=== PATIENT | female | born 1990 | race Caucasian/White ===

== ENCOUNTER 2018-03-06 04:14 | Outpatient (CLI) | payer MEDICAID ==
[2018-03-06 04:53] LABS: APPEARANCE,URINE SLIGHTLY-CLOUDY; BILIRUBIN,URINE NEGATIVE (NEGATIVE); COLOR,URINE YELLOW; GLUCOSE, URINE NEGATIVE (NEGATIVE); KETONES,URINE NEGATIVE (NEGATIVE); LEUKOCYTE ESTERASE,URINE MODERATE (NEGATIVE); NITRITE,URINE NEGATIVE (NEGATIVE); PROTEIN,URINE NEGATIVE (NEGATIVE); URINE SPECIFIC GRAVITY 1.019; UROBILINOGEN,URINE NEGATIVE mg/dL (<2.0)
[2018-03-06 05:10] LABS: URINE AMPHETAMINES SCREEN NEGATIVE; URINE BARBITURATES SCREEN NEGATIVE; URINE BENZODIAZEPINES SCREEN NEGATIVE; URINE COCAINE SCREEN NEGATIVE; URINE METHADONE SCREEN NEGATIVE; URINE PHENCYCLIDINE SCREEN NEGATIVE
[2018-03-06 05:16] LABS: URINE MARIJUANA (THC) SCREEN UNCONFIRMED POSITIVE
== END 2018-03-06 05:24 | disposition home or self-care (01) ==
LOC: LC 04:14
PROVIDERS: ATTEND Obstetrics & Gynecology Gynecology
PROC: 4A1HXCZ Monitoring of Products of Conception, Cardiac Rate, External Approach (ICD-10-PCS; principal; 2018-03-06)
DX: O47.1 False labor at or after 37 completed weeks of gestation (principal); Z3A.40 40 weeks gestation of pregnancy
CPT/HCPCS: 81005; 80307; 84112; 59025; G0480 ×2; 80349

== ENCOUNTER 2018-03-09 23:50 | Inpatient (IN) | payer MEDICAID ==
--- NOTE | 2018-03-09 23:53 | Non Stress Test Report ---
Non Stress Test Datetime Report Generated by CPN: 03/09/2018 23:52 DEMOGRAPHIC EGA NST: 40.3 INDICATION Indication for Study: Ordered by Provider Indication for Study (NST) Other: LC URINE RESULTS Urine Protein, NST: Negative Urine Ketones - NST: Negative Urine Glucose - NST: Negative Urine Blood - NST: Negative MONITORING Monitor Explained: Monitor Explained; Test Explained; Patient Verbalized Understanding Time on Monitor: 03/06/2018 04:38 Time off Monitor: 03/06/2018 05:19 NST Duration: 41 NST INTERVENTIONS NST Interventions: PO Hydration (Annotations: Data stored by CPN on behalf of user) Physician Notified NST: Drummond BABY A: [id number] BABY A Movement : Present Contraction Frequency : irregular FHR Baseline : 125 Accelerations : 15X15 Decelerations : None Variability : Moderate 6-25bpm NST Review: Meets Criteria for Reactive NST NST Review and Verified By : ESTELA Reddy NST Results: Reactive NST REPORT Report Trigger: Send Report
[2018-03-10 00:46] LABS: APPEARANCE,URINE SLIGHTLY-CLOUDY; BILIRUBIN,URINE NEGATIVE (NEGATIVE); COLOR,URINE YELLOW; GLUCOSE, URINE NEGATIVE (NEGATIVE); KETONES,URINE NEGATIVE (NEGATIVE); LEUKOCYTE ESTERASE,URINE SMALL (NEGATIVE); NITRITE,URINE NEGATIVE (NEGATIVE); PROTEIN,URINE NEGATIVE (NEGATIVE); UROBILINOGEN,URINE NEGATIVE mg/dL (<2.0)
[2018-03-10 01:02] LABS: URINE AMPHETAMINES SCREEN NEGATIVE; URINE BARBITURATES SCREEN NEGATIVE; URINE BENZODIAZEPINES SCREEN NEGATIVE; URINE COCAINE SCREEN NEGATIVE; URINE METHADONE SCREEN NEGATIVE; URINE PHENCYCLIDINE SCREEN NEGATIVE
[2018-03-10 01:05] LABS: URINE MARIJUANA (THC) SCREEN UNCONFIRMED POSITIVE
[2018-03-10] MEDS ORDERED: RINGERS SOLUTION,LACTATED 1,000 ML IV PRN (02:45)
[2018-03-10] MEDS ORDERED: RINGERS SOLUTION,LACTATED 1,000 ML IV ONE (02:45)
[2018-03-10 03:14] LABS: ABSOLUTE BASOPHILS # (AUTO) 0.1 10^3/uL (0.0-0.2); ABSOLUTE EOSINOPHILS # (AUTO) 0.1 10^3/uL (0.0-0.6); ABSOLUTE MONOCYTES (AUTO) 0.7 10^3/uL (0.1-1.4); BASOPHILS % (AUTO) 0.4 % (0-2); EOSINOPHILS % (AUTO) 0.3 % (0-6); HEMATOCRIT 34.8 % (36.0-47.0); HEMOGLOBIN 12.2 g/dL (12.0-15.5); LYMPHOCYTES % (AUTO) 5.9 % (13-45); MEAN CORPUSCULAR HEMOGLOBIN 31.6 pg (27.0-33.4); MEAN CORPUSCULAR HGB CONC 35.1 g/dL (32.0-36.0); MEAN CORPUSCULAR VOLUME 90 fl (80-97); MONOCYTES % (AUTO) 3.8 % (3-13); PLATELET COUNT 247 10^3/uL (150-450); RED BLOOD COUNT 3.87 10^6/uL (3.72-5.28); RED CELL DISTRIBUTION WIDTH 13.2 % (11.5-14.0); SEGMENTED NEUTROPHILS % (AUTO) 89.6 % (42-78); TOTAL CELLS COUNTED % (AUTO) 100 %; WHITE BLOOD COUNT 17.9 10^3/uL (4.0-10.5)
[2018-03-10] MEDS ORDERED: PHENYLEPHRINE HCL INJ/PF 10 MG/1 ML SDV ONE (07:56)
[2018-03-10] MEDS ORDERED: MISOPROSTOL 0.2 MG TABLET ONE (07:56)
[2018-03-10] MEDS ORDERED: OXYTOCIN 10 UNIT/ML VIAL ONE (07:56)
[2018-03-10] MEDS ORDERED: EPHEDRINE SULFATE INJ 50 MG/1 ML AMPULE ONE (07:57)
[2018-03-10] MEDS ORDERED: OXYTOCIN/NORMAL SALINE 20 UNIT/1,000 ML RTUINJ ONE (07:57)
[2018-03-10] MEDS ORDERED: LIDOCAINE 1% INJ-PF (10 MG/ML) 30 ML SDV ONE (07:57)
[2018-03-10] MEDS ORDERED: FENTANYL CITRATE INJ/PF 100 MCG/2 ML AMPUL ONE ×2 (07:57→08:25)
[2018-03-10] MEDS ORDERED: FENTANYL/BUPIVACAINE/NS/PF 200 MCG/100 ML RTUINJ EPI ONE (07:58)
[2018-03-10] MEDS ORDERED: BUPIVACAINE HCL 0.5 % INJ/PF 30 ML SDV ONE (07:59)
--- NOTE | 2018-03-10 08:21 | Admission Physical ---
Datetime Report Generated by CPN: 03/10/2018 08:21 CURRENT ADMISSION Chief Complaint: Uterine Contractions Admit Impression : Postterm, Intrauterine ; Active Labor Admit Plan: Admit to Unit ALLERGIES Medication Allergies: No Medication Allergies: latex (03/06/2018) Latex: Latex Allergies OBSTETRICAL HISTORY EDC: 03/03/2018 00:00 : 1 Para: 0 Term: 0 : 0 SAB: 0 IAB: 0 Ectopic: 0 Livin Cesareans: 0 VBACs: 0 Multiple Births: 0 Gestational Diabetes: No Rh Sensitization: No Incompetent Cervix: No AMAN: No Infertility: No ART Treatment: No Uterine Anomaly: No IUGR: No Hx Previous C/S: No Macrosomia: No Hx Loss/Stillborn: No PIH: No Hx : No Placenta Previa/Abruption: No Depression/PP Depression: No PTL/PROM: No Post Hemorrhage: No Current Procedures: Ultrasound Obstetrical History Comments: g1 - current, twin demise at 9weeks SEE RECORDS Alcohol: No Marijuana : No Cocaine: No Other Illicit Drugs: No Cigarettes: Never Smoker. 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 INFECTIOUS HISTORY Gonorrhea: No Genital Herpes: No Chlamydia: No Tuberculosis: No Syphilis: No Hepatitis: No HIV/AIDS Exposure: No Rash or Viral Illness: No HPV: No PHYSICAL EXAM General: Normal HEENT: Normal Neurologic: Normal Thyroid: Normal Heart: Normal Lungs: Normal Breast: Normal Back: Normal Abdomen: Normal Genitourinary Exam: Normal Extremities: Normal DTRs: Normal Pelvic Type: Adequate VAGINAL EXAM Dilatation: 5 Effacement: 70 Station: =1 MEMBRANES Membranes: Intact FETUS A EGA: 41.0 Monitoring: External US PLANS FOR LABOR AND DELIVERY Labor and Delivery: None Pain Management: Medications; Epidural Feeding Preference: Breast Benefit of Breast Feed Discussed: Yes Circumcision: Yes INFORMED CONSENT Assignment: Danni Nelson MD Signature: with User ID: [email or web address] : with User ID: [email or web address]
--- NOTE | 2018-03-10 08:29 | L&D Progress Notes ---
PROGRESS NOTES Datetime Report Generated by CPN: 03/10/2018 08:29 PROGRESS NOTE Impression: Normal Progression of Labor Plan: Continue Present Management; Anticipate Vaginal Delivery Informed Consent Obtained: Vaginal Delivery Vital Signs : Reviewed Comment: pt uncomfortable with contractions, bolusing for an epidural. Encouraged to breathe with each contraction. Up to void due to full bladder. VAGINAL EXAM Dilatation: 8 Effacement: 90 Station: =1 MEMBRANES Membranes: Intact FETUS A FHR - Baseline: 140 Monitoring: External US Accelerations: 15X15 Decelerations: Variable SIGNATURE SIGNATURE: 10,[id number];14,[id number];13,[id number] SIGNATURE: [id number];14,[id number] SIGNATURE: [id number] Assignment: Danni Nelson MD Signature: with User ID: [email or web address] : with User ID: [email or web address]
--- NOTE | 2018-03-10 10:51 | L&D Progress Notes ---
PROGRESS NOTES Datetime Report Generated by CPN: 03/10/2018 10:51 PROGRESS NOTE Impression: Normal Progression of Labor; Reassuring Heart Rate Procedures: Sterile Vag Exam Plan: Continue Present Management; Anticipate Vaginal Delivery Plan Other: Labor down Vital Signs : Reviewed Comment: Pt remains comfortable with the epidural. Not feeling a strong urge to push. Plan to d/c lara cath and have pt sit in high fowlers to labor down. Anticipate . Dr Nelson is the Attending MD today. VAGINAL EXAM Dilatation: ant lip Effacement: 100 Station: 2 Contractions: 1-3 FETUS A FHR - Baseline: 135 Variability: Moderate 6-25bpm Accelerations: 15X15 Decelerations: None FHR Category: Category III FETUS C SIGNATURE: [id number];14,[id number];10,[id number] Assignment: Danni Nelson MD Signature: with User ID: [email or web address] : with User ID: [email or web address]
[2018-03-10] MEDS ORDERED: IBUPROFEN 800 MG TABLET ONE (14:04)
[2018-03-10] MEDS ORDERED: MEASLES,MUMPS&RUBELLA VACC/PF 0.5 ML VIAL SUBCUT PRN ×2 (15:58→17:53)
[2018-03-10] MEDS ORDERED: BENZOCAINE/MENTHOL AEROSOL SPRAY 56 ML TOP PRN ×2 (15:58→17:53)
[2018-03-10] MEDS ORDERED: ACETAMINOPHEN WITH CODEINE #3 TABLET PO PRN ×3 (15:58→17:53)
[2018-03-10] MEDS ORDERED: OXYTOCIN/NORMAL SALINE 20 UNIT/1,000 ML RTUINJ IV PRN (15:58)
[2018-03-10] MEDS ORDERED: DIBUCAINE 1% OINTMENT 28 GM TP PRN ×2 (15:58→17:53)
[2018-03-10] MEDS ORDERED: ZOLPIDEM TARTRATE 5 MG TABLET PO PRN ×2 (15:58→17:53)
[2018-03-10] MEDS ORDERED: DIPHENHYDRAMINE HCL 25 MG CAPSULE PO PRN (17:53)
[2018-03-10] MEDS ORDERED: ACETAMINOPHEN 650 MG SUPP.RECT PR PRN (17:53)
[2018-03-10] MEDS ORDERED: GLYCERIN/WITCH HAZEL LEAF 1 EACH MED..PAD TP PRN (17:53)
[2018-03-10] MEDS ORDERED: MAGNESIUM HYDROXIDE SUSP 30 ML UDCUP PO PRN (17:53)
[2018-03-10] MEDS ORDERED: PSEUDOEPHEDRINE HCL 30 MG TABLET PO PRN (17:53)
[2018-03-10] MEDS ORDERED: PROMETHAZINE HCL 25 MG TABLET PO PRN (17:53)
[2018-03-10] MEDS ORDERED: PROMETHAZINE HCL INJ 25 MG/1 ML VIAL IV PRN (17:53)
[2018-03-10] MEDS ORDERED: DIPH/PERTUSS(ACELL)/TETANUS VAC/PF 0.5 ML SYR (>=10YO) IM PRN (17:53)
[2018-03-10] MEDS ORDERED: PROMETHAZINE HCL 25 MG SUPP.RECT PR PRN (17:53)
[2018-03-10] MEDS ORDERED: NA PHOS,M-B/NA PHOS,DI-BA (ADULT) 133 ML ENEMA PR PRN (17:53)
[2018-03-10] MEDS ORDERED: FERROUS SULFATE 325 MG TABLET PO SCH (18:00)
[2018-03-10] MEDS ORDERED: DOCUSATE SODIUM 100 MG CAPSULE PO SCH (18:00)
[2018-03-10] MEDS: DOCUSATE SODIUM 100 MG CAPSULE PO SCH (18:13)
[2018-03-10] MEDS: FERROUS SULFATE 325 MG TABLET PO SCH (18:14)
[2018-03-10] MEDS: FAMOTIDINE 20 MG TABLET PO SCH (21:40)
[2018-03-10] MEDS: IBUPROFEN 800 MG TABLET PO SCH (21:40)
[2018-03-10] MEDS ORDERED: IBUPROFEN 800 MG TABLET PO SCH (22:00)
[2018-03-11] MEDS: ACETAMINOPHEN WITH CODEINE #3 TABLET PO PRN ×3 (03:55→21:54)
[2018-03-11] MEDS: IBUPROFEN 800 MG TABLET PO SCH ×3 (05:12→21:55)
[2018-03-11 07:58] LABS: HEMATOCRIT 22.1 % (36.0-47.0); MEAN CORPUSCULAR HEMOGLOBIN 31.8 pg (27.0-33.4); MEAN CORPUSCULAR HGB CONC 34.8 g/dL (32.0-36.0); MEAN CORPUSCULAR VOLUME 91 fl (80-97); PLATELET COUNT 198 10^3/uL (150-450); RED BLOOD COUNT 2.42 10^6/uL (3.72-5.28); RED CELL DISTRIBUTION WIDTH 13.4 % (11.5-14.0); WHITE BLOOD COUNT 14.6 10^3/uL (4.0-10.5)
[2018-03-11 08:16] LABS: HEMOGLOBIN 7.7 g/dL (12.0-15.5)
--- NOTE | 2018-03-11 08:26 | Delivery Summary ---
Del Sum A-C Datetime Report Generated by CPN: 03/11/2018 08:26 DELIVERY PERSONNEL DELIVERY PERSONNEL: [id number] Delivery Doctor:: Sonia Kilgore CNM Labor and Delivery Nurse:: Consuelo Dunlap RNphysiotherapy practice manager Nurse:: Lyn Hogue RN Assortment Planner/CLINICAL REHABILITATION COORDINATOR: Christine Gaffney, PLANT SAFETY LEADER MATERNAL INFORMATION Delivery Anesthesia: Local; Epidural Medications After Delivery: Pitocin Bolus-Please Comment; Pitocin Drip 20 Units/1000ml NSS; Cytotec 1000mcg Per Rectum/Vagina Maternal Complications: None Provider Comments: Pt pushed well, progressed to a of a viable baby boy. Delivered RUBEN, crying and in stable condition. Placed on pts abdoman. Umbilical cord clamped and cut after one minute. Placenta delivered S/C/I. Uterine atony noted and increased PP bleeding right after the placenta delivered. 1000 mcg Rectal Cytotec placed, IV Pitocin bolus infusing. Hemostasis achieved with bimanual massage and medications. Pt stable. A_O x 3, VSS. Repair of 2nd degree laceration completed. QBL 800 ml. Attending MD is Dr Nelson LABOR SUMMARY EDC: 03/03/2018 00:00 No. Babies in Womb: 1 Attempted: No Labor Anesthesia: Epidural LABOR INFORMATION Reason for Induction: Not Applicable Onset of Labor: 03/10/2018 02:36 Complete Dilatation: 03/10/2018 11:52 Other Ripening Agents: n/a Oxytocin: N/A Group B Beta Strep: negative Antibiotics # of Doses: 0 Antibiotics Time of Last Dose: N/A Name of Antibiotic Given: N/A Steroids Given: None Reason Steroids Not Administered: Not Applicable Other Reason Not Administered: N/A MEMBRANES Membranes Rupture Method: Spontaneous Rupture of Membranes: 03/10/2018 07:40 Length of Rupture (hr): 5.48 Amniotic Fluid Color: Bloody Amniotic Fluid Amount: Small Amniotic Fluid Odor: Normal STAGES OF LABOR Stage 1 hr: 9 Stage 1 min: 16 Stage 2 hr: 1 Stage 2 min: 17 Stage 3 hr: 0 Stage 3 min: 6 Total Time in Labor hr: 10 Total Time in Labor min: 39 VAGINAL DELIVERY Episiotomy: None Laceration Extension #1: N/A Laceration #2: Perineal Laceration Extension #3: N/A Laceration Repair: Yes Laceration Repair Note: Repaired with 2.[address] needle using continuous stitch. Numbed with 1% Lidocaine. Pt tolerated well. Sponge Count Correct: N/A Sharps Count Correct: N/A BABY A INFORMATION Infant Delivery Date/Time: 03/10/2018 13:09 Method of Delivery: Vaginal Born in Route : No : N/A Forceps: N/A Vacuum Extraction: N/A Shoulder Dystocia : No PRESENTATION/POSITION BABY A Presentation: Cephalic Cephalic Presentation: Vertex Vertex Position: Right Occipital Anterior Breech Presentation: N/A PLACENTA INFORMATION BABY A Placenta Delivery Time : 03/10/2018 13:15 Placenta Method of Delivery: Spontaneous Placenta Method of Delivery: Spontaneous Placenta Status: Delivered SCORES BABY A Heart Rate 1 min: >100 bpm Resp Effort 1 min: Good Cry Reflex Irritability 1 min: Cough or Sneeze or Pulls Away Muscle Tone 1 min: Active Motion Color 1 min: Blue/Pale Resuscitation Effort 1 min: Tactile Stimulation SCORE 1 MIN: 8 Heart Rate 5 min: >100 bpm Resp Effort 5 min: Good Cry Reflex Irritability 5 min: Cough or Sneeze or Pulls Away Muscle Tone 5 min: Active Motion Color 5 min: [place], Extremities Blue Resuscitation Effort 5 min: Tactile Stimulation SCORE 5 MIN: 9 INFORMATION BABY A Gestational Age at Delivery: 41.0 Gestational Status: Late Term- 41- 41.6 Weeks Outcome : Liveborn Condition : Stable Sex: Male IDENTIFICATION BABY A Verification Date/Time: 03/10/2018 13:34 ID Band Number: [id number] Mother's Name Verified: Yes Infant RN Verifying Infant: BL MILAGROLUND, RN Additional Verifying Personnel: Destiny CUMMINSNELY, RN WEIGHT/LENGTH BABY A Infant Birthweight (gm): 3470 Weight (lb): 7 Weight (oz): 10 Infant Length (in): 21.50 Infant Length (cm): 54.61 CORD INFORMATION BABY A No. Cord Vessels: 3 Nuchal Cord : N/A Cord Blood Taken: Yes-For Storage (Mom's Blood type +) Suction: Mouth ASSESSMENT BABY A Infant Complications: Multiple Variable Decels Physical Findings at Delivery: Within Normal Limits Infant Respirations: Appears Normal Skin to Skin: Yes Skin to Skin Time (min): 90 Physical Ther/ALS Called : No Transferred To: Remains with Mother BABY B INFORMATION : N/A SIGNATURES Assignment: Danni Nelson MD Signature: with User ID: [email or web address] : with User ID: [email or web address]
[2018-03-11] MEDS ORDERED: SENNOSIDES/DOCUSATE 8.6-50 MG 1 EACH TABLET PO SCH (10:00)
[2018-03-11] MEDS ORDERED: PRENATAL VITAMIN W DHA CAPSULE PO SCH (10:00)
[2018-03-11] MEDS: FAMOTIDINE 20 MG TABLET PO SCH ×2 (10:27→21:55)
[2018-03-11] MEDS: PRENATAL VITAMIN W DHA CAPSULE PO SCH (10:27)
[2018-03-11] MEDS: FERROUS SULFATE 325 MG TABLET PO SCH ×3 (10:27→17:13)
[2018-03-11] MEDS: SENNOSIDES/DOCUSATE 8.6-50 MG 1 EACH TABLET PO SCH (10:27)
[2018-03-11] MEDS: DOCUSATE SODIUM 100 MG CAPSULE PO SCH ×2 (10:27→17:13)
[2018-03-11] MEDS: ASCORBIC ACID 500 MG TABLET PO SCH ×2 (12:12→17:12)
--- NOTE | 2018-03-11 12:12 | PDOC PROGRESS REPORT ---
Subjective-OB Progress Note for:: 03/11/18 Subjective: Pt doing well, on concerns. She reports light bleeding, reg diet and voiding without difficulty. Physical Exam (OB) Vital Signs: Temp Pulse Resp BP Pulse Ox 97.9 F 90 16 122/65 99 03/11/18 09:12 03/11/18 09:12 03/11/18 09:12 03/11/18 09:12 03/11/18 09:12 Intake & Output 03/10/18 03/11/18 03/12/18 06:59 06:59 06:59 Weight 100.4 kg - PIH/Pre-Eclampsia Clonus: Negative Headache: Absent Epigastric Pain: No Visual Changes: No - Lochia Lochia Amount: Scant < 10 ml Lochia Color: Rubra/Red - Abdomen Description: Soft, Round Hernia Present: No Fundal Description: Firm, Midline Fundal Height: u/u - u/2 Objective-Diagnostic Laboratory: 03/11/18 07:32 03/11/18 07:32 WBC 14.6 H RBC 2.42 L Hgb 7.7 L D Hct 22.1 L MCV 91 MCH 31.8 MCHC 34.8 RDW 13.4 Plt Count 198 Assessment and Plan(PN) - Assessment and Plan (1) Vaginal delivery Is this a current diagnosis for this admission?: Yes (2) Active labor at term Is this a current diagnosis for this admission?: Yes (3) Post term at 41 weeks gestation Is this a current diagnosis for this admission?: Yes - Time Spent with Patient Time with patient: Less than 15 minutes Smoking Education Provided: Over 3 minutes Medications reviewed and adjusted accordingly: Yes - Disposition Anticipated Discharge: Home Within: within 24 hours
[2018-03-12] MEDS: IBUPROFEN 800 MG TABLET PO SCH ×2 (09:20→13:12)
[2018-03-12] MEDS: ASCORBIC ACID 500 MG TABLET PO SCH (09:21)
[2018-03-12] MEDS: FERROUS SULFATE 325 MG TABLET PO SCH (09:21)
[2018-03-12] MEDS: SENNOSIDES/DOCUSATE 8.6-50 MG 1 EACH TABLET PO SCH (09:22)
[2018-03-12] MEDS: DOCUSATE SODIUM 100 MG CAPSULE PO SCH (09:22)
[2018-03-12] MEDS: FAMOTIDINE 20 MG TABLET PO SCH (09:22)
[2018-03-12] MEDS: PRENATAL VITAMIN W DHA CAPSULE PO SCH (09:22)
--- NOTE | 2018-03-12 10:07 | PDOC PROGRESS REPORT ---
Subjective-OB Progress Note for:: 03/12/18 Subjective: Doing well, no c/o, tolerating low H&H, eating well, voiding Physical Exam (OB) Vital Signs: Temp Pulse Resp BP Pulse Ox 97.9 F 90 16 122/65 99 03/11/18 09:12 03/11/18 09:12 03/11/18 09:12 03/11/18 09:12 03/11/18 09:12 - PIH/Pre-Eclampsia DTR's: 1 + Clonus: Negative Headache: Absent Epigastric Pain: No Visual Changes: No - Lochia Lochia Amount: Scant < 10 ml Lochia Color: Rubra/Red - Abdomen Description: Tender, Soft Hernia Present: No Fundal Description: Firm Fundal Height: u/u - u/2 Objective-Diagnostic Laboratory: 03/11/18 07:32 Assessment and Plan(PN) - Assessment and Plan (1) Anemia, posthemorrhagic, acute Is this a current diagnosis for this admission?: Yes (2) Vaginal delivery Is this a current diagnosis for this admission?: Yes (3) Post term at 41 weeks gestation Is this a current diagnosis for this admission?: Yes - Time Spent with Patient Time with patient: Less than 15 minutes Smoking Education Provided: Over 3 minutes Medications reviewed and adjusted accordingly: Yes - Disposition Anticipated Discharge: Home Within: within 48 hours
--- NOTE | 2018-03-12 10:11 | PDOC DISCHARGE SUMMARY ---
Final Diagnosis Discharge Date: 03/12/18 - Final Diagnosis (1) Anemia, posthemorrhagic, acute Is this a current diagnosis for this admission?: Yes (2) Vaginal delivery Is this a current diagnosis for this admission?: Yes (3) Post term at 41 weeks gestation Is this a current diagnosis for this admission?: Yes Discharge Data - Discharge Medication Prescriptions: Ferrous Sulfate [Feosol 325 mg Tablet] 325 mg PO TID #90 tablet Home Medications: Pnv 102/Iron/Folate 1/Dss/Dha [Vitafol Fe+ Docusate Combo Pck] 1 cap PO DAILY Ferrous Sulfate [Feosol 325 mg Tablet] 325 mg PO TID #90 tablet 03/12/18 Gestational Age: 41 Reason(s) for Admission: Onset of Labor Procedures: NST, Ultrasound Intrapartum Procedure(s): Spontaneous Vaginal Delivery Complication(s): Laceration-Perineal, Hemorrhage-Uterine Atony Laceration-Degree: 1st - Diagnosis Test Laboratory: Temp Pulse Resp BP Pulse Ox 97.9 F 90 16 122/65 99 03/11/18 09:12 03/11/18 09:12 03/11/18 09:12 03/11/18 09:12 03/11/18 09:12 03/10/18 03/10/18 03/11/18 00:05 03:02 07:32 RBC 3.87 2.42 L Hgb 12.2 7.7 L D Hct 34.8 L 22.1 L Urine Opiates Screen NEGATIVE - Discharge information/Instructions Discharge Activity: Activity As Tolerated, No Lifting Over 10 Pounds, No Lifting /Push/Pulling, Pelvic Rest Discharge Diet: As Tolerated, Regular Disposition: HOME, SELF-CARE Follow up with: [facility] in: 2, Weeks
[2018-03-12 11:03] VITALS: BP 124/54
== END 2018-03-12 14:40 | disposition home or self-care (01) | DRG 775 ==
LOC: LC 23:50 → LR 03-10 02:47 → 2S 03-10 15:40
PROVIDERS: ADMIT Student in an Organized Health Care Education/Training Program; ATTEND Student in an Organized Health Care Education/Training Program
PROC: 10E0XZZ Delivery of Products of Conception, External Approach (ICD-10-PCS; principal; 2018-03-10)
PROC: 0KQM0ZZ Repair Perineum Muscle, Open Approach (ICD-10-PCS; 2018-03-10)
DX: O70.1 Second degree perineal laceration during delivery (principal); Z37.0 Single live birth; Z3A.41 41 weeks gestation of pregnancy; O99.02 Anemia complicating childbirth; D62 Acute posthemorrhagic anemia; O48.0 Post-term pregnancy
CPT/HCPCS: 36415; 80307; 80349; 81005; 85025; 85027; 86592; 86850; 86900; 86901; G0480; J2370; J2590; J3010; J3490